=== PATIENT | female | born 1980 ===

== ENCOUNTER 2018-05-08 16:17 | Emergency (ER) | payer OTHER ==
[2018-05-08 16:31] VITALS: BP 145/91; PULSE 65; RESP 16; TEMP 98.3; O2SAT 100
--- NOTE | 2018-05-08 18:03 | ED PDOC ---
Upper Extremity Pain/Injury Time Seen by Provider: 05/08/18 17:03 Chief Complaint (Nursing): Back Pain Chief Complaint (Provider): Left shoulder pain, left neck pain History Per: Patient History/Exam Limitations: no limitations Onset/Duration Of Symptoms: Days (7 days) Current Symptoms Are (Timing): Still Present Exacerbating Factor(s): Movement Additional History Per: Patient Additional Complaint(s): 37yo female, with no significant past medical history, comes to ER with complaints of left shoulder and neck pain, present for the past week. Patient noticed some left sided neck and shoulder pain after working out 1 week ago. Patient states she took 1 dose of Tylenol during that time with no relief of pain; she has also had amateur massages with minimal relief. Patient reports continued significant pain, and also has intermittent numbness and tingling of her left hand. She denies any direct trauma to her neck, arm or shoulders. She also denies any fever, chills, sweats or decreased ROM in neck. PMD: Dr. Altamirano Past Medical History Reviewed: Historical Data, Nursing Documentation, Vital Signs Vital Signs: Last Vital Signs Temp 98.3 F 05/08/18 16:31 Pulse 65 05/08/18 16:31 Resp 16 05/08/18 16:31 BP 145/91 H 05/08/18 16:31 Pulse Ox 100 05/08/18 16:31 - Medical History PMH: No Chronic Diseases - Surgical History Surgical History: Appendectomy Other surgeries: fallopian tube surgery - Family History Family History: States: No Known Family Hx - Social History Current smoker - smoking cessation education provided: Yes - Home Medications Home Medications: Ambulatory Orders Medication Instructions Recorded Cyclobenzaprine [Cyclobenzaprine 10 mg PO Q8 PRN 5 Days tab 05/08/18 HCl] Ibuprofen [Motrin Tab] 800 mg PO Q6 PRN 5 Days tab 05/08/18 - Allergies Allergies/Adverse Reactions: Allergies Allergy/AdvReac Type Severity Reaction Status Date / Time No Known Allergies Allergy Verified 05/08/18 16:28 Review of Systems ROS Statement: Except As Marked, All Systems Reviewed And Found Negative (per HPI) Constitutional: Negative for: Fever, Chills, Sweats Cardiovascular: Negative for: Chest Pain Respiratory: Negative for: Shortness of Breath Musculoskeletal: Positive for: Shoulder Pain, Arm Pain Neurological: Positive for: Numbness Physical Exam - Reviewed Nursing Documentation Reviewed: Yes Vital Signs Reviewed: Yes - Physical Exam Appears: Positive for: Non-toxic, Uncomfortable Head Exam: Positive for: ATRAUMATIC, NORMAL INSPECTION, NORMOCEPHALIC Skin: Positive for: Normal Color Eye Exam: Positive for: Normal appearance Neck: Positive for: Supple (pain on palpation of left neck; no eccymosis, swelling or erythema noted to neck or arm. Normal c-spine.). 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 Negative for: Deformity, Swelling Neurologic/Psych: Positive for: Alert, Oriented. Negative for: Motor/Sensory Deficits - ECG O2 Sat by Pulse Oximetry: 100 (RA) Pulse Ox Interpretation: Normal Medical Decision Making Medical Decision Making: Impression: 37yo female w/ left neck and shoulder pain Plan: -- Upreg -- Motrin 800mg PO -- Flexeril 10mg PO 1820 On reassessment, patient reports improvement in pain. Patient instructed to take medication as prescribed and to follow up with PMD in 2-3 days. Scribe Attestation: Documented by Cintia Espino acting as a scribe for DOUG Rodgers. Provider Attestation: All medical record entries made by the Scribe were at my direction and personally dictated by me. I have reviewed the chart and agree that the record accurately reflects my personal performance of the history, physical exam, medical decision making, and the department course for this patient. I have also personally directed, reviewed, and agree with the discharge instructions and disposition. Disposition - Clinical Impression Clinical Impression: Musculoskeletal arm pain - Patient ED Disposition Is Patient to be Admitted: No - Disposition Referrals: Ena Altamirano MD [Non-Staff] - Disposition: Routine/Home Disposition Time: 18:22 Condition: STABLE Additional Instructions: Take Flexeril and Ibuprofen for pain. Avoid taking Flexeril if you need to drive or operate heavy machinery. Rest as much as possible. F/u with orthopedist for further evaluation if pain persists. Prescriptions: Cyclobenzaprine [Cyclobenzaprine HCl] 10 mg PO Q8 PRN 5 Days tab PRN Reason: Pain, Moderate (4-7) Ibuprofen [Motrin Tab] 800 mg PO Q6 PRN 5 Days tab PRN Reason: Pain, Moderate (4-7) Instructions: Muscle Strain (DC), Shoulder Pain (DC) Forms: [facility] (Slovak), [facility] ED School/Work Excuse Print Language: PERUVIAN
== END 2018-05-08 18:35 | disposition home or self-care (01) ==
LOC: H.ER 16:17
DX: M25.512 Pain in left shoulder (principal)